=== PATIENT | male | born 1965 | race Two or more races ===

== ENCOUNTER 2022-07-07 21:25 | Emergency (ER) | payer OTHER ==
[~2022-07-07] VITALS: Ht 162.6 cm; Wt 67.6 kg
--- NOTE | 2022-07-07 22:57 | NUR ---
Informed [facility] that patient will be returning to facility.
--- NOTE | 2022-07-07 23:00 | NUR ---
[facility] transportation eta 5 min.
--- NOTE | 2022-07-07 23:11 | NUR ---
Patient discharged to [facility] in stable condition with [facility]. Written and verbal after care instructions given. [facility] verbalizes understanding of instructions. Stressed follow up or return to ER for worsening s/s.
[2022-07-07 23:13] VITALS: BP 120/69
== END 2022-07-07 23:13 ==
LOC: ER 21:25
DX: R46.89 Other symptoms and signs involving appearance and behavior (principal)
CPT/HCPCS: A4663